=== PATIENT | female | born 2000 | race Hispanic/Latino ===

== ENCOUNTER 2022-06-06 23:51 | Emergency (ER) | payer OTHER ==
[2022-06-07] MEDS ORDERED: Ibuprofen 200 MG TAB ONE (00:38)
== END 2022-06-07 02:18 | disposition home or self-care (01) ==
LOC: CSHERS 23:51
DX: S82.001A Unspecified fracture of right patella, initial encounter for closed fracture (principal); X58.XXXA Exposure to other specified factors, initial encounter